=== PATIENT | female | born 1950 | race Caucasian/White ===

== ENCOUNTER → 2018-06-03 | Emergency (ER) | payer MEDICARE ==
[~2018-06-03] MED LIST: MACROBID 1100 MG/CAP PO
[2018-06-03 18:04] VITALS: TEMP 98
[2018-06-03 18:36] LABS: COLLECTION METHOD CLEAN CATCH
[2018-06-03 18:53] LABS: MUCOUS Present /lpf; PH 5 (5-8); SQUAMOUS EPITHELIAL 0-2 /hpf; URINE APPEARANCE Hazy; URINE BACTERIA Rare /hpf; URINE BILIRUBIN Negative (NEGATIVE); URINE BLOOD Negative (NEGATIVE); URINE COLOR Yellow; URINE GLUCOSE Negative (NEGATIVE); URINE KETONE Negative (NEGATIVE); URINE LEUKOCYTE ESTERASE Trace (NEGATIVE); URINE NITRATE Negative (NEGATIVE); URINE PROTEIN(semi-quant) 2+ (NEGATIVE)
[2018-06-03 19:11] VITALS: BP 117/71; PULSE 80
== END ==
LOC: COL.ER 17:14
PROVIDERS: Emergency Medicine
DX: T67.5XXA Heat exhaustion, unspecified, initial encounter (principal); J44.9 Chronic obstructive pulmonary disease, unspecified; X32.XXXA Exposure to sunlight, initial encounter
CPT/HCPCS: J2405; J7030